=== PATIENT | female | born 1960 | race Caucasian/White ===

== ENCOUNTER → 2017-02-02 | Outpatient (CLI) | payer OTHER | END | disposition home or self-care (01) | LOC: KCIC MAMMO 14:18 | PROVIDERS: ATTEND Family Medicine | DX: Z12.31 Encounter for screening mammogram for malignant neoplasm of breast (principal) | CPT/HCPCS: G0202; 77067 ==

== ENCOUNTER → 2017-02-23 | Outpatient (CLI) | payer OTHER ==
--- NOTE | 2017-02-24 17:01 | KCIC ---
DATE: 02/23/2017 EXAM: DIGITAL DIAGNOSTIC RT, BREAST RIGHT HISTORY: Asymmetry right breast COMPARISON: 02/02/2017 This study was interpreted with the benefit of Computerized Aided Detection (CAD ). FINDINGS: Breast Density: HETERO The breast parenchyma Is heterogeneously dense, which could reduce sensitivity of mammography. Breast parenchyma level C. On the spot compression view the previously visualized asymmetry is not clearly identified. Ultrasound of the right breast in the retroareolar region demonstrated no definite evidence of mass or lesion. Small right axillary lymph node identified. IMPRESSION: Probably benign findings BI-RADS CATEGORY: 3 PROBABLE BENIGN-SHORT TERM F/U RECOMMENDED FOLLOW-UP: 6 months PQRS compliance statement: Patient information was entered into a reminder system with a target due date 08/26/2017 for the next mammogram. Mammography is a sensitive method for finding small breast cancers, but it does not detect them all and is not a substitute for careful clinical examination. A negative mammogram does not negate a clinically suspicious finding and should not result in delay in biopsying a clinically suspicious abnormality. "Our facility is accredited by the [employer] Mammography [employer]." JAYLIND
== END | disposition home or self-care (01) ==
LOC: KCIC MAMMO 14:07
PROVIDERS: ATTEND Family Medicine
DX: R92.8 Other abnormal and inconclusive findings on diagnostic imaging of breast (principal)
CPT/HCPCS: 76641; G0206; 77065

== ENCOUNTER → 2017-10-07 | Outpatient (CLI) | payer OTHER | END | disposition home or self-care (01) | LOC: KCIC MRI 12:17 | DX: M48.061 Spinal stenosis, lumbar region without neurogenic claudication (principal); M51.36 Other intervertebral disc degeneration, lumbar region; M24.28 Disorder of ligament, vertebrae; M12.88 Other specific arthropathies, not elsewhere classified, other specified site; M54.16 Radiculopathy, lumbar region | CPT/HCPCS: 72148; G0206 ==

== ENCOUNTER → 2018-03-31 | Outpatient (CLI) | payer OTHER | END | disposition home or self-care (01) | LOC: KCIC MAMMO 12:47 | DX: N60.41 Mammary duct ectasia of right breast (principal) | CPT/HCPCS: 76641; 77066; G0279 ==

== ENCOUNTER → 2019-02-01 | Outpatient (CLI) | payer OTHER ==
[~2019-02-01] MED LIST: 0.9 % SODIUM CHLORIDE 10 ML DISP.SYRIN. ID ONE; GADOBUTROL 7.5 MMOL/7.5 ML VIAL INT ART ONE; IOHEXOL 300 MG/ML 50 ML VIAL. INT ART ONE; LIDOCAINE 1% Multi-Dose 20 ML VIAL. ID ONE
--- NOTE | 2019-02-01 13:28 | KCIC ---
MR arthrogram of the left shoulder HISTORY: Left shoulder pain and decreased range of motion for about 2 months. TECHNIQUE: 4 plane sequences obtained after intra-articular contrast injection. FINDINGS: The acromioclavicular joint is intact with very mild degenerative hypertrophy. Thickening and heterogeneous signal of the rotator cuff compatible with tendinosis. There is a undersurface tear of the supraspinatus tendon, 90 percent deep, and measuring 15 mm wide by about 15 mm AP. No complete through and through rupture involving the bursal tissue. Trace fluid but no significant contrast in the subdeltoid bursa. Partial subscapularis tendon tear. Abnormal signal within the posterosuperior labrum compatible with a tear. The biceps tendon is intact. There is no evidence of acute fracture or aggressive bone destruction. IMPRESSION: 1. Deep undersurface tear of the supraspinatus tendon. Mild partial subscapularis tendon tear. 2. Posterosuperior labral tear. Electronically signed by: Jake Decker MD (02/01/2019 1:25 PM) [facility]
--- NOTE | 2019-02-02 10:58 | KCIC ---
Fluoroscopically guided injection of the left shoulder prior to MR arthrogram 02/01/2019 Clinical history: Chronic left shoulder pain. Technique: After the risks and benefits of the procedure were explained to the patient, written informed consent was obtained. The anterior skin surface of the left shoulder was prepped and draped in sterile fashion. 1% lidocaine was used as local anesthetic. Under fluoroscopic guidance, a 22-gauge spinal needle was advanced into the anterior aspect of the left glenohumeral joint. Intra-articular position of the needle was confirmed with 3 cc of Omnipaque 300. Following 15 cc of a solution containing 5 cc of Omnipaque 300, 5 cc of 1% lidocaine, 10 cc of normal saline and 0.1 cc of Gadavist were injected into the left glenohumeral joint. Following this the needle was removed and hemostasis achieved at the puncture site. A sterile bandage was placed on the skin puncture site. The patient tolerated the procedure well and there were no immediate complications. The total fluoroscopic time for this study was 25 seconds. 2 digital fluoroscopic captured radiographs of the left shoulder were obtained. Impression: Technically successful injection of the left shoulder joint under fluoroscopy as outlined above. Electronically signed by: Teofilo Bean MD (02/02/2019 10:55 AM) [id number]
== END | disposition home or self-care (01) ==
LOC: KCIC 10:27
PROVIDERS: ATTEND Orthopaedic Surgery
DX: S46.012A Strain of muscle(s) and tendon(s) of the rotator cuff of left shoulder, initial encounter (principal); S43.432A Superior glenoid labrum lesion of left shoulder, initial encounter; M19.012 Primary osteoarthritis, left shoulder; Z88.2 Allergy status to sulfonamides; X58.XXXA Exposure to other specified factors, initial encounter; Y93.89 Activity, other specified; Y92.89 Other specified places as the place of occurrence of the external cause; Y99.8 Other external cause status
CPT/HCPCS: 23350; 73040; 73222; A9585; Q9967

== ENCOUNTER → 2019-04-03 | Outpatient (CLI) | payer OTHER | END | disposition home or self-care (01) | LOC: LAB 16:10 | PROVIDERS: ATTEND Orthopaedic Surgery | DX: Z01.812 Encounter for preprocedural laboratory examination (principal) | CPT/HCPCS: 36415; 87641 ==

== ENCOUNTER → 2019-06-01 | Outpatient (CLI) | payer OTHER ==
--- NOTE | 2019-06-01 16:22 | KCIC ---
Bilateral digital screening mammograms with 3-D tomosynthesis: Reason for examination: Routine screening. Comparison is made to previous studies dated back to 08/09/2012. Bilateral mammograms in CC and oblique projections were obtained with 2-D imaging and 3-D tomosynthesis imaging on a Siemens Inspiration unit and reviewed on the workstation. Interpretation was made with the benefit of CAD. The skin and nipples show no abnormalities. No abnormal axillary lymph nodes are seen. The breast parenchyma is heterogeneously dense. (Breast density: Category C.) There continues to be a small nodular parenchymal density posterior superiorly in the left breast on oblique view which probably represents an intramammary lymph node. There is also some nodular tendons retroareolar position bilaterally which is unchanged. There are no new dominant masses, suspicious calcifications or architectural distortion. Biopsy clip remains present on the left. Impression: No evidence of malignancy. Recommend routine screening. Your patient's mammogram demonstrates that she has dense breast tissue (breast density category C or D), which could hide abnormalities, and if she has other risk factors for breast cancer that have been identified, she might benefit from supplemental screening tests that may be suggested by you as her ordering physician. Dense breast tissue, in and of itself, is a relatively common condition. Therefore, this information is not provided to cause undue concern, but rather to raise your awareness and to promote discussion with your patient regarding the presence of other risk factors, in addition to dense breast tissue. Your patient's mammography results will be sent to her. BI-RAD Category 2: Benign. "Our facility is accredited by the [employer] Mammography Program." This patient's information has been entered into a reminder system for the patient to be notified with the results of her examination and a target date for the next mammogram. Electronically signed by: Dorothy Braswell MD (06/01/2019 4:19 PM) [id number]
== END | disposition home or self-care (01) ==
LOC: KCIC MAMMO 13:38
PROVIDERS: ATTEND Family Medicine
DX: Z12.31 Encounter for screening mammogram for malignant neoplasm of breast (principal)
CPT/HCPCS: 77063; 77067